=== PATIENT | male | born 1990 | race Hispanic/Latino ===

== ENCOUNTER 2020-09-14 20:31 | Emergency (ER) | payer SELFPAY ==
[2020-09-14] MEDS ORDERED: Acetaminophen 500 MG TAB ONE (21:38)
[2020-09-14] MEDS ORDERED: Diazepam 5 MG TAB ONE (21:38)
== END 2020-09-14 23:28 | disposition home or self-care (01) ==
LOC: ERS 20:31
DX: M51.26 Other intervertebral disc displacement, lumbar region (principal)
CPT/HCPCS: 72131